=== PATIENT | female | born 1945 | race African-American/Black ===

== ENCOUNTER 2017-10-27 09:55 | Emergency (ER) | payer OTHER ==
[~2017-10-27] VITALS: Ht 160 cm; Wt 80.7 kg
[2017-10-27 10:33] VITALS: BP_SYST 159
[2017-10-27 11:30] VITALS: BP_SYST 140
== END 2017-10-27 11:30 | disposition home or self-care (01) ==
LOC: SED 09:55
DX: S93.505A Unspecified sprain of left lesser toe(s), initial encounter (principal); Z88.0 Allergy status to penicillin; W18.09XA Striking against other object with subsequent fall, initial encounter; Y93.89 Activity, other specified; Y92.89 Other specified places as the place of occurrence of the external cause; Y99.8 Other external cause status
CPT/HCPCS: 99284